=== PATIENT | male | born 1975 | race African-American/Black ===

== ENCOUNTER 2018-10-22 08:17 | Emergency (ER) | payer BC, OTHER ==
[2018-10-22] MEDS ORDERED: Acetaminophen 500 MG TAB ONE (08:32)
[2018-10-22] MEDS ORDERED: Ibuprofen 800 MG TAB ONE (08:42)
--- NOTE | 2018-10-22 09:04 | RAD ---
PA AND LATERAL VIEWS CHEST: Date: 10/22/18 HISTORY: Cough. FINDINGS: The heart size is normal. The lungs are expanded with patchy infiltrates bilaterally, right greater t colyb left. No pneumothoraces or pleural effusions are seen. IMPRESSION: Pneumonia. POS: [facility]
[2018-10-22] MEDS ORDERED: cefTRIAXone\\ROCEPHIN 2 GM VIAL ONE (09:52)
[2018-10-22] MEDS ORDERED: Sodium Chloride 0.9% 100 ML ONE (09:52)
[2018-10-22 10:19] LABS: #Basophils 0.1 thou/uL (0.0-0.2); #Lymphocytes 0.6 thou/uL (1.20-3.40); #Monocytes 0.8 thou/uL (0.11-0.59); #Neutrophils 13.3 thou/uL (1.40-6.50); %Basophils 0.4 % (0.0-1.0); %Eosinophils 0.2 % (0.0-10.0); %Lymphocytes 3.7 % (21.0-51.0); %Monocytes 5.3 % (0.0-10.0); %Neutrophils 90.4 % (42.0-75.0); Hemoglobin 15.2 g/dL (14.0-18.0); Mean Corpuscular HGB CONC 32.3 g/dL (32.0-36.0); Mean Corpuscular Hemoglobin 27.7 pg (27.0-31.0); Mean Platelet Volume 8.1 fL (7.4-10.4); Platelet Count 215 thou/uL (130-400); RBC Distribution Width 12.6 % (11.5-14.5); Red Blood Cell (RBC) Count 5.48 mill/uL (4.70-6.10); White Blood Cell (WBC) Count 14.7 thou/uL (4.8-10.8)
[2018-10-22 11:22] LABS: ALT (SGPT) 41 U/L (8-55); AST (SGOT) 28 U/L (5-34); Albumin 4.2 g/dL (3.5-5.0); Alkaline Phosphatase 73 U/L (40-150); Anion Gap 15 mmol/L (10-20); BUN (Urea Nitrogen) 13 mg/dL (8.9-20.6); Calc. Creatinine Clearance 0 mL/min (70-130); Calcium 9.3 mg/dL (7.8-10.44); Carbon Dioxide 21 mmol/L (22-29); Chloride 105 mmol/L (98-107); Estimated GFR-MDRD Greater than 90; Globulin 3.7 g/dL (2.4-3.5); Glucose 111 mg/dL (70-105); Potassium 4.4 mmol/L (3.5-5.1); Protein, Total 7.9 g/dL (6.0-8.3); Sodium 137 mmol/L (136-145)
[2018-10-22] MEDS ORDERED: Azithromycin 250 MG TAB ONE (12:07)
== END 2018-10-22 12:15 | disposition home or self-care (01) ==
LOC: ERS 08:17
DX: J18.9 Pneumonia, unspecified organism (principal); I10 Essential (primary) hypertension; Z87.891 Personal history of nicotine dependence; R65.10 Systemic inflammatory response syndrome (SIRS) of non-infectious origin without acute organ dysfunction
CPT/HCPCS: 71046; 80053; 83605; 85025; 87804; 94640; 94760; 96365; J0696; J7050; J7620

== ENCOUNTER 2019-08-10 19:42 | Inpatient (IN) | payer SELFPAY ==
[~2019-08-10 19:42] MED LIST: Iopamidol-370 76% 500 ML 1 ML ONE
[2019-08-10] MEDS ORDERED: cefTRIAXone\\ROCEPHIN 1 GM VIAL ONE (21:19)
[2019-08-10] MEDS ORDERED: Azithromycin 500 MG VIAL ONE (21:19)
--- NOTE | 2019-08-10 21:50 | CT ---
CT PULMONARY ANGIOGRAM WITH IV CONTRAST AND 3D POSTPROCESSING: Date: 08/10/19 HISTORY: Cough, elevated D-Dimer. FINDINGS: There is good contrast opacification of the pulmonary arterial vasculature without filling defects to suggest pulmonary embolism. There is no opacification of the thoracic aorta. No aneurysmal dilatation of the thoracic aorta is, h owever, seen. No pericardial or left pleural effusions are seen. There is a tiny right pleural effusi on. There are patchy alveolar opacities in the left mid and lower lung zones. There are mild degenerative changes in the spine. IMPRESSION: 1. No CT evidence of pulmonary embolism. 2. Findings suspicious for left-sided pneumonia. POS: [facility]
[2019-08-10 22:24] LABS: Troponin I 0.073 ng/mL (< 0.028)
[2019-08-11 01:09] LABS: Troponin I 0.083 ng/mL (< 0.028)
[2019-08-11 04:28] LABS: Troponin I 0.088 ng/mL (< 0.028)
[2019-08-11] MEDS ORDERED: Acetaminophen 325 MG TAB PO PRN (08:54)
[2019-08-11] MEDS ORDERED: Carvedilol 3.125 MG TAB PO SCH (09:00)
[2019-08-11] MEDS ORDERED: Enoxaparin Sodium 40 MG/0.4 ML SYRINGE SC SCH ×2 (09:00→14:45)
[2019-08-11] MEDS ORDERED: cefTRIAXone\\ROCEPHIN 1 GM in Sodium Chloride 0.9% 100 ML IVPB SCH (09:00)
--- NOTE | 2019-08-11 10:09 | HP ---
CHIEF COMPLAINT: Shortness of breath and cough. HISTORY OF PRESENT ILLNESS: This patient is a 44-year-old male, who presented to this facility back in September, at which time he was seen in the emergency department, had some infiltrates on chest x-ray and fever and was diagnosed with pneumonia and treated with p.o. antibiotics. The patient reports that he has not stopped coughing since that time. He also reports that he has had some progressive shortness of breath over the last month. It has become more significant to the point that now he is not even able to take a shower or even speak with any duration without becoming dyspneic. He denies any chest pain. He is not aware of any fever, although his thinks he may have had some fever that was transient. His cough is nonproductive. The patient does have elevated blood pressures here and was noted to have elevated blood pressure previously in his visit in September. He reports a knowledge of having hypertension, but has not had it treated. The patient's also reports that he snores very loudly and frequently will stop breathing and then will jerk, come awake, and then start breathing again. PAST MEDICAL HISTORY: Notable for untreated hypertension and the above-mentioned diagnosis of pneumonia. PAST SURGICAL HISTORY: None. FAMILY HISTORY: The father had coronary artery disease with stents and uncles with myocardial infarction. SOCIAL HISTORY: The patient is a former smoker. He smoked about 5 years a pack to a pack and half per day and quit around 1999. Denies drugs or significant alcohol. He is . He is full code. His would be his surrogate decision maker. REVIEW OF SYSTEMS: He denies any significant peripheral edema. All other systems reviewed. All pertinent positives and negatives noted in the history of present illness. The patient has had some issues with constipation and some mild abdominal cramping and decreased appetite. CURRENT MEDICATIONS: None. ALLERGIES: NONE. PHYSICAL EXAMINATION: VITAL SIGNS: In the emergency room, blood pressure 161/75, pulse 95, respirations 18, temperature is 99.0, and O2 saturation was 96% on room air. GENERAL APPEARANCE: Age-appropriate male. He is obese. He is in no acute distress. Awake, alert, pleasant, cooperative. HEENT: YUVAL. No OP lesions. NECK: Supple and symmetric. HEART: Has a 2/6 systolic murmur heard throughout the precordium with a diastolic component noted in the upper precordial area. Regular rhythm. No rubs. LUNGS: Clear to auscultation bilaterally with no wheezes or rales. Good chest wall expansion and air exchange. ABDOMEN: Soft, nontender, and nondistended. Positive bowel sounds. No masses. No organomegaly. EXTREMITIES: Have trace to 1+ pretibial pitting edema. PSYCH: Normal affect and behavior. NEURO: The patient has normal cranial nerve function. Moves all extremities spontaneously. No evidence of focal deficits. LABORATORY DATA: White count 13.3, hemoglobin 14.2, and platelets 225. D-dimer was 1.27. Sodium 142, potassium 4.5, chloride 105, BUN 14, creatinine 1.20, glucose 123, AST 24, ALT 38, CK-MB is 2.7. Troponin initially 0.073. Subsequent 0.073, 0.083, and 0.088. Procalcitonin is 0.08. Flu screen is negative. Chest x-ray shows no acute cardiopulmonary processes, although cardiomegaly is noted. CTA of the chest reveals no evidence of pulmonary embolism. There are findings suspicious for a left-sided pneumonia. By my review, this is fairly faint. EKG shows some LVH with a left axis deviation, slightly prolonged QTc and no acute ischemic changes. ER COURSE: The patient initially presented to the emergency room in [place], where he had the labs and CT performed and was subsequently transferred here to the ED, where the subsequent troponins were ordered. He has had Rocephin, azithromycin, and DuoNeb. IMPRESSION AND PLAN: 1. Dyspnea. The patient appears to have significant cardiomegaly on his chest x-ray and CT scan. By comparison to his visit in September, it appears to be significantly changed. He may have had mild borderline cardiomegaly in September, but it is certainly more prominent now. He has some evidence that this could be more related to cardiomegaly and heart failure. There is some evidence for pneumonia with borderline elevated white blood cell count and subtle infiltrate findings on CT. 2. Cardiomegaly, likely with some resultant heart failure, obtaining echocardiogram and Cardiology consult. His troponins are indeterminate. We will go ahead and start him on low-dose beta ethel. 3. Pneumonia. Again, the patient has subtle elevation of his white count and subtle findings on CT along with dry cough and some dyspnea on exertion. We will continue with the antibiotics for now, although my suspicion is that this is more likely cardiac. 4. Supraventricular tachycardia. The patient just had a nonsustained run of 16 beats of supraventricular tachycardia, likely part and parcel to his cardiac issues as mentioned above and again starting him on some low-dose beta ethel. Continue with telemetry monitoring. 5. Obstructive sleep apnea. The patient has pretty good evidence of significant obstructive sleep apnea. He will need outpatient workup. Certainly raises the specter of some pulmonary hypertension and potential right heart failure as well. We will get a better sense of that once we get the echocardiogram. 6. Hypertension. The patient has a history of untreated hypertension, although he is aware of the diagnosis. It appears to be isolated systolic hypertension, which is unusual in this age, certainly concerning for the possibility of aortic valvular disease. We will follow up on echo results. Job ID: [id number]
[2019-08-11] MEDS ORDERED: Communication Order-Pharmacy FS SCH (14:00)
[2019-08-11 14:30] VITALS: BMI 44.1
[2019-08-11] MEDS: Furosemide 20 MG/2 ML VIAL SLOW IVP SCH (14:53)
[2019-08-11] MEDS: Carvedilol 3.125 MG TAB PO SCH (17:10)
--- NOTE | 2019-08-11 18:22 | CON ---
DATE OF CONSULTATION: HISTORY OF PRESENT ILLNESS: Esteban Yu is a 44-year-old black male, who presented with shortness of breath and coughing. He was seen in September in the emergency room and was diagnosed having pneumonia and treated with p.o. antibiotics. Ever since that time, he states that he has been coughing over the last 10 months. He also did have exertional dyspnea, episodes of PND at times sleepING in a chair. His cough is nonproductive. He denies any peripheral edema, but on exam does have mild edema. He denies any chest discomfort. When he presented to [facility] yesterday, his blood pressure was 179/90, and he was given metoprolol 25 mg and lisinopril 10 mg p.o. He states he does have a history of hypertension, but has not been on any medications. PAST MEDICAL HISTORY: Untreated hypertension. No history of diabetes or hypercholesterolemia. MEDICATIONS: None. OPERATIONS: None. ALLERGIES: NONE. SOCIAL HISTORY: He smokes 1 to 1-1/2 packs per day, but stopped in 1999. He does not smoke or drink. FAMILY HISTORY: Father had a stent placement in his coronary arteries. REVIEW OF SYSTEMS: A 12-point review of systems otherwise unremarkable. PHYSICAL EXAMINATION: VITAL SIGNS: Blood pressure 132/78, pulse of 90 (the patient has been placed on carvedilol 3.125 b.i.d.). HEENT: PERRL. NECK: Supple. CHEST: Reveals crackles at the left base. CARDIOVASCULAR: S1 and S2 are normal without any S3 or S4. There is a 1/6 systolic murmur. Carotid upstrokes normal without bruits. ABDOMEN: Obese. Normal bowel sounds. No tenderness. EXTREMITIES: Revealed 1+ pretibial edema. NEUROLOGIC: Grossly intact. SKIN: Warm and dry. LABORATORY DATA: EKG reveals sinus tachycardia with left axis deviation, left ventricular hypertrophy with repolarization abnormalities. White count 13,300, hemoglobin 14.2, hematocrit 48.0, and platelets 225,000. D-dimer 1.27. He then underwent chest CTA, which revealed no evidence of pulmonary embolism. There was a patchy infiltrate in the left mid lower lung field concerning for pneumonia. Sodium 142, potassium 4.5, chloride 105, carbon dioxide 25, BUN 14, creatinine 1.20, and glucose 123. Troponin I is up to 0.083 and BNP 2114.2. Magnesium 1.9. Echocardiogram revealed moderate left ventricular dysfunction with ejection fraction of 35% to 40%, severe left atrial enlargement, moderate mitral regurgitation, mild aortic regurgitation, and [id number] tricuspid regurgitation. IMPRESSION: 1. Chronic systolic heart failure with ejection fraction of 35% to 40%. 2. Untreated hypertension. 3. Unknown cholesterol status. 4. Former smoker. 5. Positive family history. 6. Possible left lung infiltrate with slightly elevated white count. 7. Obesity. 8. History of nocturnal snoring, possible sleep apnea. 9. A 16-beat run of supraventricular tachycardia at approximately 160 per minute. RECOMMENDATIONS: Mr. Yu is on appropriate antibiotics with azithromycin and Rocephin. He has been placed on low-dose carvedilol. With his PND, peripheral edema, significantly elevated BNP, and ejection fraction of 35%, I will start him on IV Lasix b.i.d. He will be examined again in the morning and consideration will be given to cardiac catheterization to rule out coronary artery disease as a cause of his left ventricular dysfunction. Risks of catheterization were discussed including , myocardial infarction, dye reaction, vascular injury, CVA, transfusion, limb loss, renal loss, etc. Also risk of intervention with PTCA and stent placement were discussed including , myocardial infarction, emergent CABG, restenosis, stent thrombosis, vessel perforation, etc. I am concerned about his lack of health insurance and long-term compliance with antiplatelet regimen, therefore I would only place a bare-metal stent if needed. Job ID: [id number] MTDD
[2019-08-11] MEDS: Azithromycin 500 MG in Sodium Chloride 0.9% 250 ML 250 ML IVPB SCH (21:35)
[2019-08-12 05:11] LABS: Anion Gap 14 mmol/L (10-20); BUN (Urea Nitrogen) 21 mg/dL (8.9-20.6); Calc. Creatinine Clearance 171 mL/min (70-130); Calcium 8.8 mg/dL (7.8-10.44); Carbon Dioxide 25 mmol/L (22-29); Cardiac Risk 4.2 (Less than 4.5); Chloride 104 mmol/L (98-107); Cholesterol 121 mg/dl (< 200 Desired); Estimated GFR-MDRD 83; Glucose 96 mg/dL (70-105); HDL Cholesterol 29 mg/dL (>60 Neg Risk); LDL Cholesterol, Calculated 79 mg/dL; Potassium 4.3 mmol/L (3.5-5.1); Sodium 139 mmol/L (136-145); Triglycerides 63 mg/dL (Less than 150)
[2019-08-12] MEDS ORDERED: Sodium Chloride 0.9% 1,000 ML IV SCH ×3 (06:00→09:13)
[2019-08-12] MEDS: Carvedilol 3.125 MG TAB PO SCH ×3 (06:17→20:26)
[2019-08-12] MEDS: Furosemide 20 MG/2 ML VIAL SLOW IVP SCH ×2 (07:29→14:40)
[2019-08-12] MEDS ORDERED: Heparin (Artline) 1,000 ML ONE (07:39)
[2019-08-12] MEDS ORDERED: Heparin 10,000 UNITS/1 ML VIAL ONE (07:39)
[2019-08-12] MEDS ORDERED: Lidocaine 1% (PF) 30 ML VIAL ONE (07:39)
[2019-08-12] MEDS ORDERED: Fentanyl 100 MCG/2 ML VIAL ONE (08:29)
[2019-08-12] MEDS ORDERED: Midazolam HCl 2 mg/2 ml Vial ONE (08:29)
[2019-08-12] MEDS ORDERED: Protamine Sulfate 50 MG/5 ML VIAL ONE (08:59)
[2019-08-12] MEDS ORDERED: Nitroglycerin 0.4 MG TAB (25 Tab Bottle) SL PRN (09:12)
[2019-08-12] MEDS ORDERED: Acetaminophen/Codeine 30-300mg Tablet PO PRN ×2 (09:12)
[2019-08-12] MEDS ORDERED: Sodium Chloride 0.9% 200 ML IV PRN (09:12)
[2019-08-12] MEDS ORDERED: Furosemide 20 MG/2 ML VIAL SLOW IVP SCH (09:15)
[2019-08-12] MEDS ORDERED: Iopamidol 370 76% 100 ML VIAL ONE (09:34)
[2019-08-12] MEDS ORDERED: Iopamidol 370 76% 50 ML VIAL FS ONE (09:34)
[2019-08-12] MEDS: cefTRIAXone\\ROCEPHIN 1 GM in Sodium Chloride 0.9% 100 ML IVPB SCH (10:00)
[2019-08-12] MEDS ORDERED: Spironolactone 25 MG TAB PO SCH (10:15)
[2019-08-12] MEDS ORDERED: FLU VACC QS2019-20(6MOS UP)/PF 60 MCG/0.5 ML SYRINGE IM ONE (15:15)
--- NOTE | 2019-08-12 17:22 | PDOC.HOSPP ---
- Subjective Subjective: Doing ok. Just had heart cath. No occlusive disease. - Objective Vital Signs & Weight: Vital Signs (12 hours) Temp Pulse Resp BP Pulse Ox 08/12/19 15:10 96 24 H 145/70 H 94 L 08/12/19 12:08 86 20 96 08/12/19 11:42 98.5 F 88 34 H 165/78 H 97 08/12/19 07:42 98.5 F 90 16 137/65 98 08/12/19 07:41 96 08/12/19 07:38 92 20 96 Weight Weight 325 lb 4.8 oz I&O: 08/11/19 08/12/19 08/13/19 06:59 06:59 06:59 Intake Total 3750 1050 Output Total 2550 2250 Balance 1200 -1200 Result Diagrams: 08/12/19 04:39 Hospitalist ROS - Medication Medications: Active Medications Generic Name Dose Route Start Last Admin Trade Name Freq PRN Reason Stop Dose Admin Albuterol/Ipratropium 3 ml 08/12/19 13:00 08/12/19 12:08 Duoneb NEB 3 ml [id number] CARL Administration Carvedilol 3.125 mg 08/12/19 15:00 08/12/19 14:40 Coreg PO 3.125 mg TID CARL Administration Furosemide 20 mg 08/11/19 14:00 08/12/19 14:40 Lasix SLOW IVP 20 mg 0600,1400 CARL Administration Azithromycin 500 mg/ Sodium 250 mls @ 250 mls/hr 08/11/19 21:00 08/11/19 21: 35 Chloride IVPB 250 mls 2100 CARL Administration Ceftriaxone Sodium 1 gm/ 100 mls @ 200 mls/hr 08/12/19 09:00 08/12/19 10:00 Sodium Chloride IVPB 100 mls 0900 CARL Administration Sodium Chloride 10 ml 08/12/19 09:00 08/12/19 10:00 Flush - Normal Saline IVF 10 ml Q12HR CARL Administration - Exam General Appearance: NAD, awake alert Neck: supple, symmetric, no JVD, no thyromegaly, no lymphadenopathy, no carotid bruit Heart: RRR, no gallops, no rubs, normal peripheral pulses, murmur present, II/IV Respiratory: CTAB, no wheezes, no rales, no ronchi, normal chest expansion, no tachypnea, normal percussion Gastrointestinal: soft, non-tender, non-distended, normal bowel sounds, no palpable masses, no hepatomegaly, no splenomegaly, no bruit Extremities: no cyanosis, no clubbing Extremities - other findings: Trace edema. Skin: normal turgor Musculoskeletal: normal tone, normal strength, no muscle wasting Psychiatric: normal affect, normal behavior, A&O x 3 Hosp A/P (1) Non-ischemic cardiomyopathy Code(s): I42.8 - OTHER CARDIOMYOPATHIES Status: Acute (2) Acute systolic congestive heart failure, NYHA class 3 Code(s): I50.21 - ACUTE SYSTOLIC (CONGESTIVE) HEART FAILURE Status: Acute (3) Hypertension Code(s): I10 - ESSENTIAL (PRIMARY) HYPERTENSION Status: Acute (4) Dyslipidemia Code(s): E78.5 - HYPERLIPIDEMIA, UNSPECIFIED Status: Acute - Plan Patient discussed situation with Dr. Salazar. Discussed with me as well. Discussed the medications. Beta ethel ACEI Diuretics. Discussed diet, daily weights. Discussed work options. Needs life vest.
[2019-08-12] MEDS: Lisinopril 2.5 MG TAB PO SCH (20:26)
[2019-08-12] MEDS: Azithromycin 500 MG in Sodium Chloride 0.9% 250 ML 250 ML IVPB SCH (20:44)
[2019-08-13 05:25] LABS: Anion Gap 17 mmol/L (10-20); BUN (Urea Nitrogen) 23 mg/dL (8.9-20.6); Calc. Creatinine Clearance 181 mL/min (70-130); Calcium 8.7 mg/dL (7.8-10.44); Carbon Dioxide 19 mmol/L (22-29); Chloride 106 mmol/L (98-107); Estimated GFR-MDRD 89; Glucose 95 mg/dL (70-105); Potassium 4.6 mmol/L (3.5-5.1); Sodium 137 mmol/L (136-145)
[2019-08-13] MEDS: Furosemide 20 MG/2 ML VIAL SLOW IVP SCH ×2 (05:59→15:14)
--- NOTE | 2019-08-13 08:06 | RAD ---
Exam: Chest one view HISTORY:Short of breath Comparison: 1117 FINDINGS: Chest is stable in appearance to prior radiograph, with persistent enlargement of cardiac silhouette. No new consolidation or significant effusion. Area of left-sided alveolar opacity demonstrated on recent CT exam is not well-visualized. IMPRESSION: Stable radiographic appearance of the chest.
[2019-08-13] MEDS: Lisinopril 2.5 MG TAB PO SCH ×2 (09:21→20:27)
[2019-08-13] MEDS: Carvedilol 3.125 MG TAB PO SCH ×3 (09:21→20:27)
[2019-08-13] MEDS: Spironolactone 25 MG TAB PO SCH (09:21)
[2019-08-13] MEDS: cefTRIAXone\\ROCEPHIN 1 GM in Sodium Chloride 0.9% 100 ML IVPB SCH (09:22)
--- NOTE | 2019-08-13 17:14 | PDOC.HOSPP ---
- Subjective Subjective: Feels well. No complaints. Breathing better. Ambulating without SOB. - Objective Vital Signs & Weight: Vital Signs (12 hours) Temp Pulse Pulse Pulse Resp BP BP 08/13/19 14:55 95 87 148/68 H 08/13/19 14:13 102 H 98 104/58 L 08/13/19 13:41 87 20 08/13/19 11:40 98.0 F 85 20 08/13/19 09:57 130 H 126 H 93/50 L 08/13/19 09:21 92 132/62 08/13/19 08:04 92 22 H 08/13/19 08:00 98.4 F 83 16 BP BP Pulse Ox Pulse Ox Pulse Ox 08/13/19 14:55 135/62 08/13/19 14:13 113/66 96 95 08/13/19 13:41 96 08/13/19 11:40 116/55 L 94 L 08/13/19 09:57 103/64 99 97 08/13/19 09:21 08/13/19 08:04 94 L 08/13/19 08:00 132/62 94 L Weight Weight 316 lb 11.2 oz I&O: 08/12/19 08/13/19 08/14/19 06:59 06:59 06:59 Intake Total 3750 1290 Output Total 2550 2800 Balance 1200 -1510 Result Diagrams: 08/13/19 04:24 Hospitalist ROS - Medication Medications: Active Medications Generic Name Dose Route Start Last Admin Trade Name Freq PRN Reason Stop Dose Admin Albuterol/Ipratropium 3 ml 08/12/19 13:00 08/13/19 13:41 Duoneb NEB 3 ml [id number] CARL Administration Carvedilol 3.125 mg 08/12/19 15:00 08/13/19 15:29 Coreg PO 08/13/19 23:59 3.125 mg TID CARL Administration Lisinopril 1.25 mg 08/12/19 21:00 08/13/19 09:21 Zestril PO 1.25 mg BID CARL Administration Sodium Chloride 10 ml 08/12/19 09:00 08/13/19 09:24 Flush - Normal Saline IVF 10 ml Q12HR CARL Administration Sodium Chloride 10 ml 08/12/19 07:12 08/13/19 15:30 Flush - Normal Saline IVF 10 ml PRN PRN Administration Saline Flush Spironolactone 25 mg 08/13/19 08:00 08/13/19 09:21 Aldactone PO 25 mg QAM-WM CARL Administration - Exam General Appearance: NAD, awake alert Heart: RRR, no gallops, no rubs, normal peripheral pulses, II/IV Respiratory: CTAB, no wheezes, no rales, no ronchi, normal chest expansion, no tachypnea, normal percussion Gastrointestinal: soft, non-tender, non-distended, normal bowel sounds, no palpable masses, no hepatomegaly, no splenomegaly, no bruit Extremities: no cyanosis, no clubbing, no edema Skin: normal turgor, no lesions Neurological: cranial nerve grossly intact, normal sensation to touch, no weakness, no focal deficits, no new deficit Musculoskeletal: normal tone, normal strength, no muscle wasting Psychiatric: normal affect, normal behavior, A&O x 3 Hosp A/P (1) Non-ischemic cardiomyopathy Code(s): I42.8 - OTHER CARDIOMYOPATHIES Status: Acute (2) Acute systolic congestive heart failure, NYHA class 3 Code(s): I50.21 - ACUTE SYSTOLIC (CONGESTIVE) HEART FAILURE Status: Acute (3) Hypertension Code(s): I10 - ESSENTIAL (PRIMARY) HYPERTENSION Status: Acute (4) Dyslipidemia Code(s): E78.5 - HYPERLIPIDEMIA, UNSPECIFIED Status: Acute - Plan Patient discussed situation with Dr. Salazar. Discussed with me as well. Medication regimen: Beta ethel - Coreg with increasing dose tomorrow. ACEI - Low dose Lisinopril Diuretics - Lasix and Aldactone Discussed diet, daily weights. Discussed work options. Needs life vest. Continue diuresis while awaiting LifeVest rep.
[2019-08-13] MEDS: Doxycycline 100 MG CAP PO SCH (20:27)
[2019-08-14 04:17] LABS: Anion Gap 10 mmol/L (10-20); BUN (Urea Nitrogen) 21 mg/dL (8.9-20.6); Calc. Creatinine Clearance 194 mL/min (70-130); Calcium 8.9 mg/dL (7.8-10.44); Carbon Dioxide 29 mmol/L (22-29); Chloride 104 mmol/L (98-107); Estimated GFR-MDRD Greater than 90; Glucose 103 mg/dL (70-105); Potassium 4.2 mmol/L (3.5-5.1); Sodium 139 mmol/L (136-145)
[2019-08-14] MEDS ORDERED: Furosemide 40 MG TAB PO SCH (07:30)
[2019-08-14] MEDS ORDERED: Carvedilol 6.25 MG TAB PO SCH (08:00)
[2019-08-14] MEDS: Spironolactone 25 MG TAB PO SCH (08:36)
[2019-08-14] MEDS: Lisinopril 2.5 MG TAB PO SCH (08:38)
[2019-08-14] MEDS: Doxycycline 100 MG CAP PO SCH (08:39)
[2019-08-14 16:16] VITALS: BP 158/65; TEMP 98
--- NOTE | 2019-08-15 07:46 | PQF ---
Esteban Yu Jr, CHARLES DO [id number] CLINICAL DOCUMENTATION CLARIFICATION FORM: POST DISCHARGE Please send this query to Dr. Winn as I did not see this patient. Thanks, Dr. Wilkinson Addendum to original discharge summary date: ____ Late entry note date: __ DATE: 08/15/2019 ATTN:EMILIA WILKINSON DO Please exercise your independent, professional judgment in responding to the clarification form. Clinical indicators are provided on the bottom of this form for your review Please check appropriate box(s): AMI TYPE: [ ] Acute Coronary Syndrome (ACS) without Acute WV meaning Unstable Angina [ ] NSTEMI (WV type I) [ ] NSTEMI due to Demand Ischemia (AMI Type II) [ ] Demand Ischemia without WV [ ] STEMI (please also specify site and arterysee below) If STEMI, SITE:[ ] Anterior [ ] Apical [ ] Lateral [ ] Inferior [ ] Posterior [ ] Q Wave [ ] Septal [ ] Unable to Determine SPECIFIC ARTERY (Based on site) [ ] Left Main Coronary[ ] Diagonal [ ] Left Anterior Descending[ ] Oblique Marginal [ ] Right Coronary Artery[ ] Unable to Determine [ ] Left Circumflex [ ] Other diagnosis [ ] Unable to determine In addition, please specify: Present on Admission (POA): [ ] Yes [ ] No [ ] Unable to determine CLINICAL INDICATORS - SIGNS / SYMPTOMS / LABS - Elevated troponin- ED record,08/10 - Troponin I: 0.088H- Laboratory, 08/11 - Dyspnea-, the patient appears to have significant cardiomegaly on his chest x- ray- H&P, 08/10, Christa Brunner MD -Chronic systolic heart failure with EF of 35% to 40%-Consultation, Martin Lockett MD RISKS: - Supraventricular tachycardia- H&P, 08/10, Pa Brunner MD - Non-ischemic cardiomyopathy- Hospital PN, 08/12, Pa Brunner MD - Acute on Chronic systolic heart failure-Hospital PN, 08/12, Pa Brunner MD TREATMENTS: - Heparin.IV- MAR, 08/12 - Furosemide.IV-MAR, 08/11 (This form is maintained as a part of the permanent medical record) 2014 [employer]. All Rights Reserved Arnold Nguyen [not provided] [not provided] MTDD
--- NOTE | 2019-08-15 14:14 | DIS ---
DATE OF ADMISSION: 08/10/2019 DATE OF DISCHARGE: 08/14/2019 DISCHARGE DIAGNOSES: 1. Acute systolic congestive heart failure, NYHA class 3. 2. Nonischemic cardiomyopathy. 3. Pneumonia. 4. Non-ST elevation myocardial infarction, type 2 secondary to demand ischemia from decompensated heart failure and pneumonia. 5. Hypertension. 6. Hyperlipidemia. 7. Morbid obesity with BMI of 42.3. 8. Likely obstructive sleep apnea. 9. Short run of nonsustained supraventricular tachycardia. 10. Tobacco abuse. HISTORY OF PRESENT ILLNESS: This patient is a 44-year-old male, who presented to the hospital of worsening shortness of breath, dyspnea on exertion, and cough. He had a CT angiogram of the chest in the emergency department, which revealed no PE but finding suspicious for left-sided pneumonia. He was started on IV antibiotics and we were consulted for admission. HOSPITAL COURSE: The patient was admitted to the Hospitalist Service. Review of his chest x-rays and CAT scans revealed significant progression of cardiomegaly from an admission back in November or September of the same year. He had concerns for progressive cardiomyopathy with congestive heart failure. Based on those findings, his history of hypertension, hyperlipidemia, tobacco abuse, and the lack of treatment, he had an echocardiogram which revealed an ejection fraction of 35% to 40% with severely dilated left atrium, moderate MR, and [id number] TR. He was started on beta-ethel with carvedilol. He was seen in consultation by Cardiology and the patient subsequently underwent a heart catheterization, which revealed no evidence of occlusive disease and it was felt that he had a nonischemic cardiomyopathy, most likely related to untreated severe hypertension. He subsequently had the addition of RAZIA inhibitors and diuretics and symptomatically, he improved substantially. He was seen by the appropriate services regarding his congestive heart failure and ultimately was felt to be stable for discharge for outpatient followup. Prior to discharge, the patient was evaluated for a LifeVest as his ejection fraction on his heart catheterization was actually closer to 25% . However, the patient was unfunded and unable to initially obtain the LifeVest. He did have plans to follow up as an outpatient to get the LifeVest obtained. PHYSICAL EXAMINATION: VITAL SIGNS: On the day of discharge, temperature was 98.0, pulse 81, respirations 18, O2 saturation 94% on room air, BP was 158/65. GENERAL: He was awake, alert, oriented, pleasant, cooperative. HEART: Regular rate and rhythm. LUNGS: Clear bilaterally. ABDOMEN: Benign. EXTREMITIES: No edema. DISPOSITION: The patient is discharged to home. DIET: He is to remain on a heart healthy, low-sodium diet which were reviewed. ACTIVITY: As tolerated although he is encouraged to avoid excessive exertion. DISCHARGE MEDICATIONS: He will be on; 1. Carvedilol 6.25 mg one p.o. b.i.d. 2. Doxycycline 100 mg b.i.d. 3. Lasix 40 mg p.o. daily. 4. Aldactone 25 mg p.o. daily. 5. Lisinopril 1.25 mg one p.o. b.i.d. FOLLOWUP: He is to follow up with Hilda Baum on 08/15/2019 and follow up with Dr. Salazar. He is to discuss the possibility of sleep apnea and a sleep study with his primary care provider. He can return to the hospital at any time should he feel the need to do so. He should also follow up with cardiac rehab in [place]. Time spent in discharge activities was 37 min. Job ID: [id number] MTDD
--- NOTE | 2019-08-19 21:25 | PQF ---
Esteban Yu Jr, DAVID R MD [id number] CLINICAL DOCUMENTATION CLARIFICATION FORM: POST DISCHARGE Addendum to original discharge summary date: ____ Late entry note date: __ DATE: 08/19/2019 ATTN:YVES MONTERO MD Please exercise your independent, professional judgment in responding to the clarification form. Clinical indicators are provided on the bottom of this form for your review Please check appropriate box(s): AMI TYPE: [ ] Acute Coronary Syndrome (ACS) without Acute MO meaning Unstable Angina [ ] NSTEMI (MO type I) [ ] NSTEMI due to Demand Ischemia (AMI Type II) [ ] Demand Ischemia without MO [ ] STEMI (please also specify site and arterysee below) If STEMI, SITE:[ ] Anterior [ ] Apical [ ] Lateral [ ] Inferior [ ] Posterior [ ] Q Wave [ ] Septal [ ] Unable to Determine SPECIFIC ARTERY (Based on site) [ ] Left Main Coronary[ ] Diagonal [ ] Left Anterior Descending[ ] Oblique Marginal [ ] Right Coronary Artery[ ] Unable to Determine [ ] Left Circumflex [ ] Other diagnosis [ ] Unable to determine In addition, please specify: Present on Admission (POA): [ ] Yes [ ] No [ ] Unable to determine CLINICAL INDICATORS - SIGNS / SYMPTOMS / LABS - Elevated troponin-ED record, 08/10 - Troponin I: 0.088H-Laboratory, 08/11 - Dyspnea- the patient appears to have significant cardiomegaly on his chest x- ray-H&P, 08/10, YVES MONTERO MD - Chronic systolic heart failure with EF of 35% to 40%-Consultation, 08/11, Martin Lockett MD RISKS: - Supraventricular tachycardia- H&P, 08/10, YVES MONTERO MD - Non-ischemic cardiomyopathy- Hospital PN, 08/12, YVES MONTERO MD - Acute on chronic systolic heart failure-Hospital PN, 08/12, YVES MONTERO MD TREATMENTS: - Heparin.IV-NOV, 08/12 - Furosemide.IV-NOV, 08/11 (This form is maintained as a part of the permanent medical record) 2014 [employer]. All Rights Reserved Arnold Nguyen [not provided] [not provided] MTDD
== END 2019-08-14 17:00 | disposition home or self-care (01) | DRG 280 ==
LOC: ERS 19:42 → OBSVTOIN 21:57 → ERHOLD 21:57 → 2SW 08-11 07:34 → 2NO 08-12 17:34
PROVIDERS: ADMIT Family Medicine; ATTEND Family Medicine
DX: I11.0 Hypertensive heart disease with heart failure (principal); J18.9 Pneumonia, unspecified organism; I21.A1 Myocardial infarction type 2; I47.1 Supraventricular tachycardia; Z68.41 Body mass index [BMI] 40.0-44.9, adult; I50.23 Acute on chronic systolic (congestive) heart failure; I42.8 Other cardiomyopathies; G47.33 Obstructive sleep apnea (adult) (pediatric); E66.01 Morbid (severe) obesity due to excess calories; I50.810 Right heart failure, unspecified; Z87.891 Personal history of nicotine dependence
CPT/HCPCS: 36415; 71045; 71275; 76942; 80048; 80061; 83735; 83880; 84145; 84484; 85347; 93005; 93306; 93458; 93798; 94640; 96365; 96367; 99152; C1769; J0456; J0696; J1644; J1650; J1940; J2001; J2250; J2720; J3010; J3490; J7050; J7620; Q9967

== ENCOUNTER 2022-01-10 16:00 | Inpatient (IN) | payer BC, OTHER ==
[2022-01-10 17:12] LABS: #Eosinphils 0.1 thou/uL (0.0-0.7); #Lymphocytes 1.3 thou/uL (1.20-3.40); #Monocytes 0.4 thou/uL (0.11-0.59); #Neutrophils 5.9 thou/uL (1.40-6.50); %Eosinophils 1.3 % (0.0-10.0); %Lymphocytes 16.5 % (21.0-51.0); %Monocytes 5.8 % (0.0-10.0); %Neutrophils 76.5 % (42.0-75.0); Mean Corpuscular HGB CONC 33.1 g/dL (32.0-36.0); Mean Corpuscular Hemoglobin 29.6 pg (27.0-31.0); Mean Corpuscular Volume 89.2 fL (78.0-98.0); Mean Platelet Volume 5.7 fL (7.4-10.4); Platelet Count 254 thou/uL (130-400); Red Blood Cell (RBC) Count 3.03 mill/uL (4.70-6.10); White Blood Cell (WBC) Count 7.7 thou/uL (4.8-10.8)
[2022-01-10 17:19] LABS: Bacteria/HPF None Seen HPF (None Seen); Bilirubin Negative (Negative); Blood, Urine Negative (Negative); Clarity Clear (Clear); Glucose, Urine (Dipstick) Normal (Negative); Ketone, Urine Negative (Negative); Leukocyte 25 Leu/uL (Negative); Nitrite Negative (Negative); Protein, Urine (Dipstick) Negative (Neg-Trace); RBC/HPF 0-3 HPF (0-3); Specific Gravity, Urine 1.005 (1.002-1.036); Squamous Epithelial 0-3 HPF (0-3); Urobilinogen Normal mg/dL (Less than 2); WBC/HPF 0-3 HPF (0-3); pH, Urine 5.5 (5.0-9.0)
[2022-01-10 17:22] LABS: PTT 27.2 sec (22.9-36.1)
[2022-01-10 17:23] LABS: INR-International Normal Ratio 1.9; Prothrombin Time 22.4 sec (12.0-14.7)
[2022-01-10 17:41] LABS: ALT (SGPT) 34 U/L (8-55); AST (SGOT) 26 U/L (5-34); Albumin 4.1 g/dL (3.5-5.0); Alkaline Phosphatase 50 U/L (40-110); Anion Gap 14 mmol/L (10-20); BUN (Urea Nitrogen) 16 mg/dL (8.9-20.6); Bilirubin, Total 0.4 mg/dL (0.2-1.2); Calc. Creatinine Clearance 0 mL/min (70-130); Calcium 9.4 mg/dL (7.8-10.44); Carbon Dioxide 24 mmol/L (22-29); Chloride 103 mmol/L (98-107); Glucose 113 mg/dL (70-105); Lipase 40 U/L (8-78); Magnesium 1.9 mg/dL (1.6-2.6); Potassium 3.9 mmol/L (3.5-5.1); Protein, Total 7.1 g/dL (6.0-8.3); Sodium 137 mmol/L (136-145)
[2022-01-10] MEDS ORDERED: Dexamethasone 10 MG/ML VIAL ONE (17:45)
[2022-01-10] MEDS ORDERED: Ketorolac Tromethamine 30 MG/ML VIAL ONE (17:45)
[2022-01-10] MEDS ORDERED: Pantoprazole 40 MG VIAL ONE (19:45)
[2022-01-10] MEDS ORDERED: Ondansetron PF 4 MG/2 ML Vial IVP PRN (19:52)
[2022-01-10] MEDS ORDERED: Acetaminophen 325 MG TAB PO PRN (19:52)
[2022-01-10] MEDS ORDERED: Lorazepam 2 MG/ML VIAL IM PRN (19:55)
[2022-01-10] MEDS ORDERED: Lorazepam 1 MG TAB PO PRN (19:55)
[2022-01-10] MEDS ORDERED: Electrolyte Replacement Protocol 1 EACH FS SCH (20:00)
[2022-01-10 22:10] VITALS: BMI 42.4
[2022-01-10] MEDS: Pantoprazole 40 MG VIAL IVP SCH ×2 (22:30→23:39)
[2022-01-10] MEDS: Thiamine HCl 200 MG/2 ML VIAL SLOW IVP SCH (22:30)
[2022-01-10] MEDS: Heparin 10,000 UNITS/ 10 ML VIAL SLOW IVP SCH (22:42)
[2022-01-10] MEDS: Heparin 25,000 units/D5W 500 ML IV SCH (22:53)
[2022-01-11 04:39] LABS: #Eosinphils 0.1 thou/uL (0.0-0.7); #Lymphocytes 1.3 thou/uL (1.20-3.40); #Monocytes 0.5 thou/uL (0.11-0.59); %Basophils 0.4 % (0.0-1.0); %Eosinophils 2.1 % (0.0-10.0); %Lymphocytes 21.5 % (21.0-51.0); %Monocytes 8.7 % (0.0-10.0); %Neutrophils 67.3 % (42.0-75.0); Hemoglobin 9.2 g/dL (14.0-18.0); Mean Corpuscular HGB CONC 32.7 g/dL (32.0-36.0); Mean Corpuscular Hemoglobin 29.4 pg (27.0-31.0); Mean Corpuscular Volume 89.9 fL (78.0-98.0); Mean Platelet Volume 5.8 fL (7.4-10.4); Platelet Count 232 thou/uL (130-400); RBC Distribution Width 14.9 % (11.5-14.5); Red Blood Cell (RBC) Count 3.13 mill/uL (4.70-6.10)
[2022-01-11 04:47] LABS: Prothrombin Time 22.8 sec (12.0-14.7)
[2022-01-11 04:51] LABS: Anion Gap 11 mmol/L (10-20); BUN (Urea Nitrogen) 14 mg/dL (8.9-20.6); Calc. Creatinine Clearance 231 mL/min (70-130); Calcium 8.6 mg/dL (7.8-10.44); Carbon Dioxide 23 mmol/L (22-29); Chloride 106 mmol/L (98-107); Glucose 99 mg/dL (70-105); Sodium 136 mmol/L (136-145)
[2022-01-11] MEDS ORDERED: Magnesium 2 GM/50 ML(in water) 2 GM in Premix Bag 1 BAG IVPB SCH (06:15)
[2022-01-11] MEDS: Pantoprazole 40 MG VIAL IVP SCH ×2 (07:58→20:34)
[2022-01-11] MEDS: Multivit, Therapeutic 1 TAB PO SCH (07:59)
[2022-01-11] MEDS: Folic Acid 1 MG TAB PO SCH (07:59)
[2022-01-11] MEDS: Furosemide 40 MG TAB PO SCH (07:59)
[2022-01-11 12:05] LABS: SARS-CoV-2 PCR by NAA Not Detected (NotDetected)
[2022-01-11 12:53] LABS: Hemoglobin 10.4 g/dL (14.0-18.0)
[2022-01-11] MEDS: Heparin 10,000 UNITS/ 10 ML VIAL SLOW IVP SCH (17:02)
[2022-01-11 18:30] LABS: Hemoglobin 9.9 g/dL (14.0-18.0)
[2022-01-11] MEDS ORDERED: Lorazepam 1 MG TAB PO PRN (19:55)
[2022-01-11] MEDS ORDERED: GoLYTELY 4,000 ml Bottle PO SCH (20:00)
[2022-01-11] MEDS: Thiamine HCl 200 MG/2 ML VIAL SLOW IVP SCH (20:33)
[2022-01-11] MEDS: Atorvastatin Calcium 40 MG TAB PO SCH (20:34)
[2022-01-11] MEDS: Heparin 25,000 units/D5W 500 ML IV SCH (22:38)
[2022-01-12 00:23] LABS: PTT 155.3 sec (22.9-36.1)
[2022-01-12 02:54] LABS: Hemoglobin 11.9 g/dL (14.0-18.0)
[2022-01-12 04:57] LABS: #Eosinphils 0.2 thou/uL (0.0-0.7); #Lymphocytes 1.4 thou/uL (1.20-3.40); #Monocytes 0.7 thou/uL (0.11-0.59); %Basophils 0.4 % (0.0-1.0); %Eosinophils 2.8 % (0.0-10.0); %Lymphocytes 18.8 % (21.0-51.0); %Monocytes 9.3 % (0.0-10.0); %Neutrophils 68.8 % (42.0-75.0); Hemoglobin 9.2 g/dL (14.0-18.0); Mean Corpuscular HGB CONC 33.6 g/dL (32.0-36.0); Mean Corpuscular Hemoglobin 29.9 pg (27.0-31.0); Mean Corpuscular Volume 88.9 fL (78.0-98.0); Mean Platelet Volume 5.7 fL (7.4-10.4); Platelet Count 264 thou/uL (130-400); RBC Distribution Width 15.1 % (11.5-14.5); Red Blood Cell (RBC) Count 3.06 mill/uL (4.70-6.10); White Blood Cell (WBC) Count 7.3 thou/uL (4.8-10.8)
[2022-01-12 05:08] LABS: INR-International Normal Ratio 1.6; Prothrombin Time 19.7 sec (12.0-14.7)
[2022-01-12 05:10] LABS: Anion Gap 13 mmol/L (10-20); BUN (Urea Nitrogen) 14 mg/dL (8.9-20.6); Calc. Creatinine Clearance 180 mL/min (70-130); Calcium 8.6 mg/dL (7.8-10.44); Carbon Dioxide 27 mmol/L (22-29); Chloride 102 mmol/L (98-107); Glucose 101 mg/dL (70-105); Potassium 3.7 mmol/L (3.5-5.1); Sodium 138 mmol/L (136-145)
[2022-01-12] MEDS ORDERED: GoLYTELY 4,000 ml Bottle PO SCH ×2 (07:15→07:30)
[2022-01-12] MEDS: Folic Acid 1 MG TAB PO SCH (09:00)
[2022-01-12] MEDS: Furosemide 40 MG TAB PO SCH (09:00)
[2022-01-12] MEDS: Multivit, Therapeutic 1 TAB PO SCH (09:00)
[2022-01-12] MEDS: Pantoprazole 40 MG VIAL IVP SCH ×2 (09:00→20:20)
[2022-01-12] MEDS ORDERED: Fentanyl 100 MCG/2 ML VIAL ONE (10:24)
[2022-01-12 10:27] LABS: Hemoglobin 9.6 g/dL (14.0-18.0)
[2022-01-12] MEDS ORDERED: PROPOFOL 200 MG/20 ML VIAL ONE (10:28)
[2022-01-12] MEDS ORDERED: PHENYLEPHRINE-NS 100 MCG/ML 10 ML SYRINGE ONE (10:28)
[2022-01-12] MEDS ORDERED: Lidocaine 1% PF 5 ML VIAL ONE (10:28)
[2022-01-12] MEDS ORDERED: Lorazepam 1 MG TAB PO PRN (19:55)
[2022-01-12] MEDS: Atorvastatin Calcium 40 MG TAB PO SCH (20:18)
[2022-01-12] MEDS: Thiamine HCl 200 MG/2 ML VIAL SLOW IVP SCH (20:18)
[2022-01-13 04:50] LABS: #Eosinphils 0.2 thou/uL (0.0-0.7); #Lymphocytes 1.2 thou/uL (1.20-3.40); #Monocytes 0.6 thou/uL (0.11-0.59); #Neutrophils 4.9 thou/uL (1.40-6.50); %Eosinophils 2.3 % (0.0-10.0); %Monocytes 8.5 % (0.0-10.0); %Neutrophils 71.2 % (42.0-75.0); Mean Corpuscular HGB CONC 31.6 g/dL (32.0-36.0); Mean Corpuscular Hemoglobin 28.6 pg (27.0-31.0); Mean Corpuscular Volume 90.3 fL (78.0-98.0); Mean Platelet Volume 5.8 fL (7.4-10.4); Platelet Count 251 thou/uL (130-400); RBC Distribution Width 15.3 % (11.5-14.5); Red Blood Cell (RBC) Count 3.14 mill/uL (4.70-6.10); White Blood Cell (WBC) Count 6.9 thou/uL (4.8-10.8)
[2022-01-13 05:03] LABS: Anion Gap 10 mmol/L (10-20); BUN (Urea Nitrogen) 12 mg/dL (8.9-20.6); Calc. Creatinine Clearance 210 mL/min (70-130); Calcium 8.3 mg/dL (7.8-10.44); Carbon Dioxide 27 mmol/L (22-29); Chloride 102 mmol/L (98-107); Glucose 91 mg/dL (70-105); Potassium 3.4 mmol/L (3.5-5.1); Sodium 136 mmol/L (136-145)
[2022-01-13] MEDS ORDERED: Potassium Chloride 20 MEQ TAB PO SCH (05:15)
[2022-01-13] MEDS: Furosemide 40 MG TAB PO SCH (07:32)
[2022-01-13] MEDS: Pantoprazole 40 MG VIAL IVP SCH ×2 (07:32→20:55)
[2022-01-13] MEDS: Multivit, Therapeutic 1 TAB PO SCH (07:32)
[2022-01-13] MEDS: Folic Acid 1 MG TAB PO SCH (07:32)
[2022-01-13] MEDS: Heparin 10,000 UNITS/ 10 ML VIAL SLOW IVP SCH (13:05)
[2022-01-13] MEDS: Heparin 25,000 units/D5W 500 ML IV SCH (13:06)
[2022-01-13] MEDS: Warfarin Sodium 10 MG TAB PO SCH (18:06)
[2022-01-13] MEDS ORDERED: Lorazepam 0.5 MG TAB PO PRN (19:55)
[2022-01-13] MEDS: Atorvastatin Calcium 40 MG TAB PO SCH (20:55)
[2022-01-13] MEDS: Thiamine 100 MG TAB PO SCH (20:55)
[2022-01-14 04:35] LABS: #Eosinphils 0.2 thou/uL (0.0-0.7); #Lymphocytes 1.4 thou/uL (1.20-3.40); #Monocytes 0.6 thou/uL (0.11-0.59); #Neutrophils 7.2 thou/uL (1.40-6.50); %Basophils 0.2 % (0.0-1.0); %Eosinophils 1.8 % (0.0-10.0); %Lymphocytes 14.5 % (21.0-51.0); %Monocytes 6.5 % (0.0-10.0); %Neutrophils 77.1 % (42.0-75.0); Hemoglobin 8.7 g/dL (14.0-18.0); Mean Corpuscular HGB CONC 31.8 g/dL (32.0-36.0); Mean Corpuscular Volume 91.1 fL (78.0-98.0); Mean Platelet Volume 5.8 fL (7.4-10.4); Platelet Count 253 thou/uL (130-400); RBC Distribution Width 15.2 % (11.5-14.5); Red Blood Cell (RBC) Count 3.01 mill/uL (4.70-6.10); White Blood Cell (WBC) Count 9.4 thou/uL (4.8-10.8)
[2022-01-14 04:52] LABS: INR-International Normal Ratio 1.4
[2022-01-14 05:03] LABS: ALT (SGPT) 28 U/L (8-55); AST (SGOT) 26 U/L (5-34); Albumin 3.6 g/dL (3.5-5.0); Alkaline Phosphatase 52 U/L (40-110); Anion Gap 10 mmol/L (10-20); BUN (Urea Nitrogen) 10 mg/dL (8.9-20.6); Bilirubin, Total 0.5 mg/dL (0.2-1.2); Calc. Creatinine Clearance 177 mL/min (70-130); Calcium 8.4 mg/dL (7.8-10.44); Carbon Dioxide 27 mmol/L (22-29); Chloride 101 mmol/L (98-107); Globulin 2.5 g/dL (2.4-3.5); Glucose 123 mg/dL (70-105); Potassium 3.2 mmol/L (3.5-5.1); Protein, Total 6.1 g/dL (6.0-8.3); Sodium 135 mmol/L (136-145)
[2022-01-14] MEDS ORDERED: Potassium Chloride 20 MEQ TAB PO SCH (05:30)
[2022-01-14 05:45] LABS: PTT 150.4 sec (22.9-36.1)
[2022-01-14] MEDS: Multivit, Therapeutic 1 TAB PO SCH (07:44)
[2022-01-14] MEDS: Folic Acid 1 MG TAB PO SCH (07:44)
[2022-01-14] MEDS: Furosemide 40 MG TAB PO SCH (07:44)
[2022-01-14] MEDS: Pantoprazole 40 MG VIAL IVP SCH ×2 (07:45→19:40)
[2022-01-14] MEDS ORDERED: Warfarin Sodium 7.5 MG TAB PO SCH (17:00)
[2022-01-14] MEDS: Heparin 10,000 UNITS/ 10 ML VIAL SLOW IVP SCH (19:14)
[2022-01-14] MEDS: Thiamine 100 MG TAB PO SCH (19:39)
[2022-01-14] MEDS: Atorvastatin Calcium 40 MG TAB PO SCH (19:39)
[2022-01-15 01:29] LABS: PTT 138.5 sec (22.9-36.1)
[2022-01-15 03:55] LABS: INR-International Normal Ratio 1.4; Prothrombin Time 17.8 sec (12.0-14.7)
[2022-01-15] MEDS: Furosemide 40 MG TAB PO SCH (08:23)
[2022-01-15] MEDS: Folic Acid 1 MG TAB PO SCH (08:23)
[2022-01-15] MEDS: Pantoprazole 40 MG VIAL IVP SCH ×2 (08:23→20:10)
[2022-01-15] MEDS: Multivit, Therapeutic 1 TAB PO SCH (08:23)
[2022-01-15] MEDS: Heparin 10,000 UNITS/ 10 ML VIAL SLOW IVP SCH (12:19)
[2022-01-15] MEDS ORDERED: Electrolyte Replacement Protocol FS PRN (13:15)
[2022-01-15 15:51] LABS: ALT (SGPT) 30 U/L (8-55); AST (SGOT) 28 U/L (5-34); Albumin 3.5 g/dL (3.5-5.0); Alkaline Phosphatase 49 U/L (40-110); Anion Gap 12 mmol/L (10-20); BUN (Urea Nitrogen) 7 mg/dL (8.9-20.6); Bilirubin, Total 0.5 mg/dL (0.2-1.2); Calc. Creatinine Clearance 186 mL/min (70-130); Calcium 8.7 mg/dL (7.8-10.44); Carbon Dioxide 26 mmol/L (22-29); Chloride 103 mmol/L (98-107); Globulin 2.8 g/dL (2.4-3.5); Glucose 102 mg/dL (70-105); Potassium 3.9 mmol/L (3.5-5.1); Protein, Total 6.3 g/dL (6.0-8.3); Sodium 137 mmol/L (136-145)
[2022-01-15] MEDS ORDERED: Warfarin Sodium 10 MG TAB PO SCH (17:00)
[2022-01-15] MEDS: Thiamine 100 MG TAB PO SCH (20:09)
[2022-01-15] MEDS: Atorvastatin Calcium 40 MG TAB PO SCH (20:09)
[2022-01-16 01:47] LABS: INR-International Normal Ratio 1.5; Prothrombin Time 18.3 sec (12.0-14.7)
[2022-01-16] MEDS: Folic Acid 1 MG TAB PO SCH (08:06)
[2022-01-16] MEDS: Multivit, Therapeutic 1 TAB PO SCH (08:06)
[2022-01-16] MEDS: Furosemide 40 MG TAB PO SCH (08:07)
[2022-01-16] MEDS: Pantoprazole 40 MG VIAL IVP SCH ×2 (08:07→22:00)
[2022-01-16] MEDS: Warfarin Sodium 10 MG TAB PO SCH (17:15)
[2022-01-16] MEDS: Thiamine 100 MG TAB PO SCH (21:59)
[2022-01-16] MEDS: Atorvastatin Calcium 40 MG TAB PO SCH (22:00)
[2022-01-17] MEDS: Heparin 25,000 units/D5W 500 ML IV SCH (02:47)
[2022-01-17 06:09] LABS: #Eosinphils 0.2 thou/uL (0.0-0.7); #Monocytes 0.7 thou/uL (0.11-0.59); %Basophils 0.4 % (0.0-1.0); %Lymphocytes 12.8 % (21.0-51.0); %Monocytes 8.3 % (0.0-10.0); %Neutrophils 76.5 % (42.0-75.0); Hemoglobin 8.1 g/dL (14.0-18.0); Mean Corpuscular HGB CONC 32.3 g/dL (32.0-36.0); Mean Corpuscular Hemoglobin 29.1 pg (27.0-31.0); Mean Platelet Volume 5.7 fL (7.4-10.4); Platelet Count 259 thou/uL (130-400); RBC Distribution Width 14.4 % (11.5-14.5); Red Blood Cell (RBC) Count 2.77 mill/uL (4.70-6.10); White Blood Cell (WBC) Count 7.9 thou/uL (4.8-10.8)
[2022-01-17 06:18] LABS: INR-International Normal Ratio 1.7; Prothrombin Time 20.5 sec (12.0-14.7)
[2022-01-17 06:19] LABS: PTT 57.7 sec (22.9-36.1)
[2022-01-17 06:29] LABS: ALT (SGPT) 29 U/L (8-55); AST (SGOT) 25 U/L (5-34); Albumin 3.5 g/dL (3.5-5.0); Alkaline Phosphatase 49 U/L (40-110); Anion Gap 11 mmol/L (10-20); BUN (Urea Nitrogen) 10 mg/dL (8.9-20.6); Bilirubin, Total 0.4 mg/dL (0.2-1.2); Calc. Creatinine Clearance 185 mL/min (70-130); Calcium 8.7 mg/dL (7.8-10.44); Carbon Dioxide 27 mmol/L (22-29); Chloride 104 mmol/L (98-107); Globulin 2.6 g/dL (2.4-3.5); Glucose 97 mg/dL (70-105); Potassium 3.8 mmol/L (3.5-5.1); Protein, Total 6.1 g/dL (6.0-8.3); Sodium 138 mmol/L (136-145)
[2022-01-17] MEDS: Heparin 10,000 UNITS/ 10 ML VIAL SLOW IVP SCH (06:48)
[2022-01-17] MEDS: Furosemide 40 MG TAB PO SCH (08:20)
[2022-01-17] MEDS: Pantoprazole 40 MG VIAL IVP SCH ×2 (08:20→19:58)
[2022-01-17] MEDS: Multivit, Therapeutic 1 TAB PO SCH (08:20)
[2022-01-17] MEDS: Folic Acid 1 MG TAB PO SCH (08:20)
[2022-01-17 13:49] LABS: INR-International Normal Ratio 1.8; Prothrombin Time 21.4 sec (12.0-14.7)
[2022-01-17 13:50] LABS: PTT 111.1 sec (22.9-36.1)
[2022-01-17] MEDS ORDERED: Warfarin Sodium 7.5 MG TAB PO SCH (17:00)
[2022-01-17] MEDS: Thiamine 100 MG TAB PO SCH (19:57)
[2022-01-17 19:58] LABS: Bilirubin Negative (Negative); Blood, Urine Negative (Negative); Clarity Clear (Clear); Glucose, Urine (Dipstick) Normal (Negative); Ketone, Urine Negative (Negative); Leukocyte 75 Leu/uL (Negative); Nitrite Negative (Negative); Protein, Urine (Dipstick) Negative (Neg-Trace); RBC/HPF 0-3 HPF (0-3); Specific Gravity, Urine 1.006 (1.002-1.036); Squamous Epithelial 0-3 HPF (0-3); Urobilinogen Normal mg/dL (Less than 2); WBC/HPF 0-3 HPF (0-3)
[2022-01-17] MEDS: Atorvastatin Calcium 40 MG TAB PO SCH (19:58)
[2022-01-17 19:59] LABS: Bacteria/HPF 1+ HPF (None Seen); Sperm/HPF 1+ HPF (None Seen)
[2022-01-17 20:00] LABS: Urine Culture Reflex Yes Yes
[2022-01-17 21:15] LABS: SARS-CoV-2 PCR by NAA Not Detected (NotDetected)
[2022-01-18 00:08] LABS: Hemoglobin 8.3 g/dL (14.0-18.0)
[2022-01-18] MEDS: Heparin 10,000 UNITS/ 10 ML VIAL SLOW IVP SCH (01:33)
[2022-01-18] MEDS ORDERED: cefTRIAXone\\ROCEPHIN 1 GM in Sodium Chloride 0.9% 100 ML IVPB SCH (08:00)
[2022-01-18 08:07] LABS: #Eosinphils 0.2 thou/uL (0.0-0.7); #Monocytes 0.6 thou/uL (0.11-0.59); #Neutrophils 4.9 thou/uL (1.40-6.50); %Basophils 0.6 % (0.0-1.0); %Eosinophils 2.7 % (0.0-10.0); %Lymphocytes 15.3 % (21.0-51.0); %Monocytes 8.6 % (0.0-10.0); %Neutrophils 72.9 % (42.0-75.0); Hemoglobin 8.2 g/dL (14.0-18.0); Mean Corpuscular HGB CONC 33.3 g/dL (32.0-36.0); Mean Corpuscular Volume 90.2 fL (78.0-98.0); Mean Platelet Volume 5.6 fL (7.4-10.4); Platelet Count 266 thou/uL (130-400); RBC Distribution Width 14.5 % (11.5-14.5); Red Blood Cell (RBC) Count 2.74 mill/uL (4.70-6.10); White Blood Cell (WBC) Count 6.8 thou/uL (4.8-10.8)
[2022-01-18] MEDS: Furosemide 40 MG TAB PO SCH (08:21)
[2022-01-18] MEDS: Folic Acid 1 MG TAB PO SCH (08:22)
[2022-01-18] MEDS: Multivit, Therapeutic 1 TAB PO SCH (08:22)
[2022-01-18] MEDS: Pantoprazole 40 MG VIAL IVP SCH (08:22)
[2022-01-18 08:23] LABS: Anion Gap 12 mmol/L (10-20); BUN (Urea Nitrogen) 16 mg/dL (8.9-20.6); Calc. Creatinine Clearance 177 mL/min (70-130); Carbon Dioxide 27 mmol/L (22-29); Chloride 103 mmol/L (98-107); Glucose 99 mg/dL (70-105); INR-International Normal Ratio 1.8; Potassium 3.8 mmol/L (3.5-5.1); Prothrombin Time 21.2 sec (12.0-14.7); Sodium 138 mmol/L (136-145)
[2022-01-18 15:05] VITALS: BP 140/81; TEMP 98.4
[2022-01-18 16:33] LABS: INR-International Normal Ratio 1.8; Prothrombin Time 20.7 sec (12.0-14.7)
[2022-01-18 17:05] LABS: INR-International Normal Ratio 1.7; Prothrombin Time 20.5 sec (12.0-14.7)
[2022-01-18] MEDS: Warfarin Sodium 10 MG TAB PO SCH (17:53)
== END 2022-01-18 18:24 | disposition home or self-care (01) | DRG 378 ==
LOC: ERS 16:00 → 2SW 20:32
PROVIDERS: ADMIT Internal Medicine; ATTEND Hospitalist
PROC: 30233N1 Transfusion of Nonautologous Red Blood Cells into Peripheral Vein, Percutaneous Approach (ICD-10-PCS; 2022-01-10)
PROC: 0DB68ZX Excision of Stomach, Via Natural or Artificial Opening Endoscopic, Diagnostic (ICD-10-PCS; principal; 2022-01-12)
PROC: 0DBK8ZZ Excision of Ascending Colon, Via Natural or Artificial Opening Endoscopic (ICD-10-PCS; 2022-01-12)
PROC: 0DBP8ZZ Excision of Rectum, Via Natural or Artificial Opening Endoscopic (ICD-10-PCS; 2022-01-12)
PROC: 0DBM8ZZ Excision of Descending Colon, Via Natural or Artificial Opening Endoscopic (ICD-10-PCS; 2022-01-12)
PROC: 0DBH8ZZ Excision of Cecum, Via Natural or Artificial Opening Endoscopic (ICD-10-PCS; 2022-01-12)
PROC: 0W3P8ZZ Control Bleeding in Gastrointestinal Tract, Via Natural or Artificial Opening Endoscopic (ICD-10-PCS; 2022-01-12)
DX: K55.21 Angiodysplasia of colon with hemorrhage (principal); D62 Acute posthemorrhagic anemia; N39.0 Urinary tract infection, site not specified; I50.22 Chronic systolic (congestive) heart failure; K31.9 Disease of stomach and duodenum, unspecified; D12.0 Benign neoplasm of cecum; K62.1 Rectal polyp; K64.4 Residual hemorrhoidal skin tags; E78.00 Pure hypercholesterolemia, unspecified; K64.8 Other hemorrhoids; I11.0 Hypertensive heart disease with heart failure; I25.5 Ischemic cardiomyopathy; E78.5 Hyperlipidemia, unspecified; F10.10 Alcohol abuse, uncomplicated; K29.70 Gastritis, unspecified, without bleeding; B96.81 Helicobacter pylori [H. pylori] as the cause of diseases classified elsewhere; K57.30 Diverticulosis of large intestine without perforation or abscess without bleeding; Z20.822 Contact with and (suspected) exposure to COVID-19; Z79.82 Long term (current) use of aspirin; Z95.4 Presence of other heart-valve replacement; Z79.899 Other long term (current) drug therapy; Z82.49 Family history of ischemic heart disease and other diseases of the circulatory system; Z87.891 Personal history of nicotine dependence
CPT/HCPCS: 36415; 36430; 80048; 80053; 81001; 81003; 81015; 83690; 83735; 85025; 85610; 85730; 86850; 86900; 86901; 87077; 87086; 87186; 88305; 88342; 93005; 96374; C9113; J0696; J1100; J1642; J1644; J1885; J2704; J3010; J3411; J3475; J3490; P9016; U0003; U0005